=== PATIENT | female | born 1990 | race Caucasian/White ===

== ENCOUNTER 2022-04-09 13:49 | Emergency (ER) | payer OTHER ==
[2022-04-09 13:56] VITALS: BP 117/74; PULSE 69; RESP 18; TEMP 97; BMI 19.1
[2022-04-09] MEDS ORDERED: diphenhydrAMINE HCL 25 MG CAPSULE (FP) PO ONE (14:45)
== END 2022-04-09 15:11 | disposition home or self-care (01) ==
LOC: JERFT 13:49
DX: L24.3 Irritant contact dermatitis due to cosmetics (principal)
CPT/HCPCS: 99283-25